=== PATIENT | female | born 1955 | race Caucasian/White ===

== ENCOUNTER 2017-05-19 18:03 | Emergency (ER) | payer OTHER ==
[~2017-05-19] VITALS: Ht 157.5 cm; Wt 65.9 kg
[~2017-05-19 18:03] MED LIST: FENO134C PO; LEVO100 PO; METF1000 PO; SIMV-261 PO; VITAD1000 PO
[2017-05-19] MEDS ORDERED: TRAZ-144 PO (18:11)
[2017-05-19] MEDS ORDERED: CITA10TA68 PO (18:11)
[2017-05-19] MEDS ORDERED: LINA5TAB PO (18:11)
[2017-05-19 18:22] LABS: GLUCOSE,POINT OF CARE 228 MG/DL (70-110)
[2017-05-19] MEDS ORDERED: KETOROLAC TROMETHAMINE 60 MG/2 ML VIAL IM ONE (19:15)
[2017-05-19 20:15] VITALS: BP 144/89
== END 2017-05-19 20:46 | disposition home or self-care (01) ==
LOC: EMS 18:05
DX: S16.1XXA Strain of muscle, fascia and tendon at neck level, initial encounter (principal); S46.912A Strain of unspecified muscle, fascia and tendon at shoulder and upper arm level, left arm, initial encounter; S46.911A Strain of unspecified muscle, fascia and tendon at shoulder and upper arm level, right arm, initial encounter; S29.012A Strain of muscle and tendon of back wall of thorax, initial encounter; S00.83XA Contusion of other part of head, initial encounter; E11.9 Type 2 diabetes mellitus without complications; E78.00 Pure hypercholesterolemia, unspecified; W06.XXXA Fall from bed, initial encounter; Y93.89 Activity, other specified; Y92.89 Other specified places as the place of occurrence of the external cause; Y99.8 Other external cause status
CPT/HCPCS: 72040; 72070; 82962; 96372; 99284; J1885

== ENCOUNTER 2019-09-04 09:39 | Emergency (ER) | payer OTHER ==
[~2019-09-04] VITALS: Ht 162.6 cm; Wt 63.6 kg
[~2019-09-04 09:39] MED LIST changes: +CHOL100018 PO; +CITA10TA68 PO; +TRAZ-252 PO; -VITAD1000 PO
[2019-09-04] MEDS ORDERED: IBUPROFEN 400 MG TABLET PO ONE (10:30)
[2019-09-04] MEDS ORDERED: LIDOCAINE 5% TRANSDERMAL PATCH TD ONE (10:30)
[2019-09-04 10:49] LABS: EOSINOPHILS % (AUTO) 1.3 % (1.0-6.0); HEMATOCRIT 41.7 % (36-46); HEMOGLOBIN 14.1 g/dL (12.0-16.0); LYMPHOCYTES # (AUTO) 1.4 K/uL (1.0-4.8); LYMPHOCYTES % (AUTO) 28.6 % (22.0-44.0); MEAN CORPUSCULAR HEMOGLOBIN 31.5 pg (26.0-34.0); MEAN CORPUSCULAR HGB CONC 33.7 G/dL (31.0-37.0); MEAN CORPUSCULAR VOLUME 94 fL (80-100); MONOCYTES # (AUTO) 0.3 K/uL (0.1-1.0); MONOCYTES % (AUTO) 5.8 % (2.0-9.0); NEUTROPHILS # (AUTO) 3.1 K/uL (1.8-7.7); NEUTROPHILS % (AUTO) 63.3 % (40.0-70.0); PLATELET COUNT (AUTO) 146 K/uL (150-450); RED BLOOD CELL COUNT(AUTO) 4.46 MIL/uL (4.00-5.20); RED CELL DISTRIBUTION WIDTH 12.8 % (11.5-14.5)
[2019-09-04 10:59] LABS: ANION GAP 9 mmol/L (8-16); CALCIUM, TOTAL 8.7 mg/dL (8.8-10.5); CARBON DIOXIDE 27 mmol/L (22-29); CHLORIDE 103 mmol/L (98-107); CREATININE 0.81 mg/dL (0.60-1.30); GLOMERULAR FILTR. RATE CALC > 60 mL/min (>60); GLUCOSE,RANDOM 210 mg/dL (70-110); POTASSIUM 3.9 mmol/L (3.5-5.1); SODIUM SERUM 139 mmol/L (136-145); UREA NITROGEN, BLOOD 13 mg/dL (7-18)
[2019-09-04 11:04] LABS: ALANINE AMINOTRANSFERASE 22 U/L (12-78); ALBUMIN 3.8 g/dL (3.4-5.0); ALKALINE PHOSPHATASE 84 U/L (46-116); ASPARTATE AMINOTRANSFERASE 23 U/L (15-37); BILIRUBIN,TOTAL 0.3 mg/dL (0.1-1.0); TOTAL PROTEIN, SERUM 7.2 g/dL (6.4-8.2)
[2019-09-04] MEDS ORDERED: ACETAMINOPHEN 325 MG TABLET PO ONE (11:45)
[2019-09-04 12:10] VITALS: BP 135/74
== END 2019-09-04 12:19 | disposition home or self-care (01) ==
LOC: EMS 09:40
DX: R07.81 Pleurodynia (principal); R06.00 Dyspnea, unspecified; F41.9 Anxiety disorder, unspecified; E11.9 Type 2 diabetes mellitus without complications; E78.00 Pure hypercholesterolemia, unspecified; Z79.84 Long term (current) use of oral hypoglycemic drugs
CPT/HCPCS: 85379; 93005

== ENCOUNTER 2019-10-06 19:54 | Emergency (ER) | payer OTHER ==
[~2019-10-06] VITALS: Ht 157.5 cm; Wt 60.0 kg
[2019-10-06 20:11] LABS: GLUCOSE,POINT OF CARE 175 MG/DL (70-110)
[2019-10-06 22:32] LABS: INFLUENZA TYPE A NEGATIVE FOR TYPE A (NEGATIVE); INFLUENZA TYPE B NEGATIVE FOR TYPE B (NEGATIVE)
[2019-10-06] MEDS ORDERED: IPRATROPIUM BROMIDE 0.5 MG/2.5 ML NEB SOLUTION NEB ONE (23:00)
[2019-10-06] MEDS ORDERED: ALBUTEROL SULFATE 2.5 MG/0.5 ML NEB SOLUTION NEB ONE (23:00)
[2019-10-06 23:42] VITALS: BP 130/78
== END 2019-10-06 23:54 | disposition home or self-care (01) ==
LOC: EMS 19:58
DX: J40 Bronchitis, not specified as acute or chronic (principal); E11.9 Type 2 diabetes mellitus without complications; E78.00 Pure hypercholesterolemia, unspecified; F41.9 Anxiety disorder, unspecified; Z79.899 Other long term (current) drug therapy
CPT/HCPCS: 87804; 94060; 94640

== ENCOUNTER 2019-10-13 12:58 | Emergency (ER) | payer OTHER ==
[~2019-10-13] VITALS: Ht 157.5 cm; Wt 61.4 kg
[2019-10-13 14:44] LABS: GLUCOSE,POINT OF CARE 203 MG/DL (70-110)
[2019-10-13] MEDS ORDERED: ACETAMINOPHEN 500 MG TABLET PO ONE (15:00)
[2019-10-13 16:49] VITALS: BP 125/67
== END 2019-10-13 16:53 | disposition home or self-care (01) ==
LOC: EMS 13:00
DX: S50.02XA Contusion of left elbow, initial encounter (principal); F41.9 Anxiety disorder, unspecified; E11.9 Type 2 diabetes mellitus without complications; E78.00 Pure hypercholesterolemia, unspecified; W22.8XXA Striking against or struck by other objects, initial encounter; Y93.89 Activity, other specified; Y92.89 Other specified places as the place of occurrence of the external cause; Y99.8 Other external cause status

== ENCOUNTER 2023-07-30 08:51 | Emergency (ER) | payer MEDICARE, MEDICAID ==
[~2023-07-30 08:51] MED LIST changes: +ALEN35TA41 PO; +ASCO500 PO; +ASPI-1450 PO; -CHOL100018 PO; +CHOL500013 PO; -CITA10TA68 PO; +CITA10TA99 PO; +EMPA25TA3 PO; -FENO134C PO; -LEVO100 PO; +LEVO125 PO; +METF-1211 PO; -METF1000 PO; +PIOG15TA6 PO; +ROSU20TA73 PO; -SIMV-261 PO
[2023-07-30 09:04] VITALS: TEMP 97.7
[2023-07-30 09:16] LABS: GLUCOMETER DEV NAME(LOC) ER.6; GLUCOSE,POINT OF CARE 275 MG/DL (70-110)
[2023-07-30] MEDS ORDERED: IBUP-1554 PO (11:14)
[2023-07-30] MEDS ORDERED: ACET-66 PO (11:14)
[2023-07-30] MEDS ORDERED: ACETAMINOPHEN 500 MG TABLET PO ONE (11:15)
[2023-07-30] MEDS ORDERED: IBUPROFEN 600 MG TABLET PO ONE (11:15)
[2023-07-30] MEDS ORDERED: CITA-144 PO (11:20)
[2023-07-30] MEDS ORDERED: ASPI-1444 PO (11:20)
[2023-07-30] MEDS ORDERED: DULA1.5P SQ (11:20)
[2023-07-30] MEDS ORDERED: PIOG30TA70 PO (11:20)
[2023-07-30] MEDS ORDERED: LINA5TAB PO (11:20)
[2023-07-30 11:40] VITALS: BP 117/65; PULSE 72; RESP 18
== END 2023-07-30 11:58 | disposition home or self-care (01) ==
LOC: EMS 09:16
DX: S29.011A Strain of muscle and tendon of front wall of thorax, initial encounter (principal); E11.9 Type 2 diabetes mellitus without complications; E78.00 Pure hypercholesterolemia, unspecified; F41.9 Anxiety disorder, unspecified; X58.XXXA Exposure to other specified factors, initial encounter; Y93.89 Activity, other specified; Y92.89 Other specified places as the place of occurrence of the external cause; Y99.8 Other external cause status
CPT/HCPCS: 71101; 82962; 99283